=== PATIENT | male | born 1955 | race Caucasian/White ===

== ENCOUNTER 2017-01-23 14:00 | Emergency (ER) | payer MEDICAID ==
[~2017-01-23] VITALS: Ht 172.7 cm; Wt 80.0 kg
[2017-01-23 14:30] VITALS: BP 154/89
[2017-01-23] MEDS ORDERED: MORPHINE SULFATE 2 MG/ML CPJ (NOT FOR IM USE) IV ONE (14:30)
[2017-01-23] MEDS ORDERED: SODIUM CHLORIDE 0.9% 1,000 ML IV ONE (14:30)
[2017-01-23] MEDS ORDERED: CEPHALEXIN 500MG CAPSULE PO ONE (14:30)
[2017-01-23] MEDS ORDERED: BACITRACIN ZINC 15GM TUBE TOP ONE (15:00)
[2017-01-23] MEDS ORDERED: SILVER SULFADIAZINE 1% CREAM 25GM TOP ONE (15:30)
[2017-01-23] MEDS ORDERED: AMLODIPINE 2.5MG TABLET PO ONE (16:00)
== END 2017-01-23 16:37 | disposition home or self-care (01) ==
LOC: ER 14:12
DX: T22.211A Burn of second degree of right forearm, initial encounter (principal); T22.232A Burn of second degree of left upper arm, initial encounter; T22.231A Burn of second degree of right upper arm, initial encounter; T31.11 Burns involving 10-19% of body surface with 10-19% third degree burns; I10 Essential (primary) hypertension; X10.2XXA Contact with fats and cooking oils, initial encounter; Y93.89 Activity, other specified; Y92.018 Other place in single-family (private) house as the place of occurrence of the external cause
CPT/HCPCS: 16020; 96361; 96374; 99284; J2270; J7030; Z7610

== ENCOUNTER 2017-01-27 14:41 | Emergency (ER) | payer MEDICAID ==
[~2017-01-27] VITALS: Ht 162.6 cm; Wt 73.0 kg
[2017-01-27] MEDS ORDERED: BACITRACIN ZINC OINT UDPKT TOP ONE (16:15)
[2017-01-27] MEDS ORDERED: CLONIDINE 0.2MG TABLET PO ONE (16:45)
[2017-01-27] MEDS ORDERED: HYDROCODONE/ACETAMINOPHEN 5/325MG TABLET PO ONE (18:15)
[2017-01-27 18:41] VITALS: BP 120/76
== END 2017-01-27 18:42 | disposition home or self-care (01) ==
LOC: ER 16:23
DX: T22.232D Burn of second degree of left upper arm, subsequent encounter (principal); T22.231D Burn of second degree of right upper arm, subsequent encounter; I80.9 Phlebitis and thrombophlebitis of unspecified site; I10 Essential (primary) hypertension; X08.8XXD Exposure to other specified smoke, fire and flames, subsequent encounter
CPT/HCPCS: 99284; A4217; Z7610